=== PATIENT | female | born 1950 | race Two or more races ===

== ENCOUNTER 2017-01-09 10:34 | Emergency (ER) | payer MEDICARE, MEDICAID ==
[~2017-01-09] VITALS: Ht 152.4 cm; Wt 52.2 kg
[~2017-01-09 10:34] MED LIST: CARB25TA77 OR; CITA-73 PO; DONE10TA17 PO; LISI-275 PO; PIOG15TA38 PO; RASA1TAB PO; [UNRECOGNIZED DRUG - CODE] PO; pravastatin PO; propranolol PO
[2017-01-09] MEDS ORDERED: SODIUM CHLORIDE 0.9% 1,000 ML IV ONE ×2 (11:00→11:45)
[2017-01-09 11:27] LABS: Basophils # (auto) 0 uL; Basophils % (auto) 0.2 % (0.0-2.0); CONDITION Y; Eosinophils # (auto) 0.1 uL; Hematocrit 40.5 % (36.0-46.0); Lymphocytes # (auto) 1.5 uL; Lymphocytes % (auto) 13.2 % (10.0-50.0); Mean Corpuscular Hemoglobin 30.8 pg (28.0-32.0); Mean Corpuscular Hgb Conc. 34.6 g/dL (32.0-36.0); Mean Corpuscular Volume 88.8 fL (80.0-100.0); Mean Platelet Volume 10.6 fL (7.4-10.4); Monocytes # (auto) 0.7 uL; Neutrophils # (auto) 9.3 uL; Neutrophils % (auto) 79.6 % (37.0-80.0); Platelet Count (auto) 208 10^3/uL (140-450); SUSPECT SEE PRINTOUT; White Blood Cell 11.6 10^3/uL (4.4-10.8)
[2017-01-09] MEDS ORDERED: DIPHENOXYLATE W/ATROPINE 2.5 MG TAB PO ONE (11:45)
[2017-01-09 11:49] LABS: Albumin 3.3 g/dL (3.4-5.0); BUN/Creatinine Ratio 14.3; Bilirubin, Total 0.7 mg/dL (0.2-1.0); Calcium 8.9 mg/dL (8.5-10.1); Potassium 3.1 mmol/L (3.5-5.1); Total Protein 7.4 g/dL (6.4-8.2)
[2017-01-09] MEDS ORDERED: metroNIDAZOLE 500MG/100ML 100 ML IV ONE (12:30)
[2017-01-09] MEDS ORDERED: POTASSIUM CHL 10% (20 MEQ/15ML) ORAL SOLN PO ONE (12:30)
[2017-01-09] MEDS ORDERED: cefTRIAXone 1GM/50ML D5W 50 ML IV ONE (12:30)
[2017-01-09 13:40] LABS: Urine Bilirubin Negative (Negative); Urine Color Yellow (Yellow); Urine Glucose TRACE mg/dL (Normal); Urine Hyaline Cast FEW /lpf (0 - 2); Urine Mucus FEW (None Seen); Urine Nitrite Negative (Negative); Urine RBC 7 /hpf (0 - 4); Urine Squamous Epithelial Cell FEW /hpf (<5); Urine Urobilinogen Normal (Negative)
[2017-01-09 13:41] LABS: Urine Blood 2+ /uL (Negative); Urine Ketone 1+ (Negative)
[2017-01-09] MEDS ORDERED: HYDROcodone-ACET 5/325MG TAB PO ONE (13:45)
[2017-01-09 14:54] VITALS: BP 103/69
== END 2017-01-09 15:14 | disposition short-term general hospital (02) ==
LOC: ER 10:34
DX: K52.9 Noninfective gastroenteritis and colitis, unspecified (principal); E11.65 Type 2 diabetes mellitus with hyperglycemia; E87.6 Hypokalemia; Z90.49 Acquired absence of other specified parts of digestive tract; Z79.899 Other long term (current) drug therapy; Z88.8 Allergy status to other drugs, medicaments and biological substances
CPT/HCPCS: 36415; 74176; 80053; 81001; 85025; 96361; 96365; 96375; 99285; J0696; J3490; J7030; 96367

== ENCOUNTER 2024-01-14 23:00 | Inpatient (IN) | payer OTHER, MEDICAID ==
[~2024-01-14] VITALS: Ht 157.5 cm; Wt 53.2 kg
[~2024-01-14 23:00] MED LIST changes: -CARB25TA77 OR; -DONE10TA17 PO; +DONE10TA9 PO; +[UNRECOGNIZED DRUG - CODE] PO; -[UNRECOGNIZED DRUG - CODE] PO
[2024-01-15] VITALS (9 sets, daily range): BP systolic 108–142; BP diastolic 61–73; PULSE 69–87; RESP 16–20; TEMP 97.9–98.4; O2SAT 94–97
[2024-01-15] MEDS ORDERED: MORPHINE SULFATE INJ 2 MG/ml SYRG IV PRN (00:45)
[2024-01-15] MEDS ORDERED: ATOR40TA52 PO (00:50)
[2024-01-15] MEDS ORDERED: GLIP5TAB21 PO (00:50)
[2024-01-15] MEDS ORDERED: EMPA1TAB3 PO (00:53)
[2024-01-15] MEDS: SODIUM CHLORIDE 0.9% 1,000 ML IV SCH (04:30)
[2024-01-15] MEDS ORDERED: ACETAMINOPHEN 325 MG TAB PO PRN (04:30)
[2024-01-15] MEDS ORDERED: ONDANSETRON HCL 4 MG/2 ML VIAL IV PRN (04:30)
[2024-01-15] MEDS ORDERED: DOCUSATE SOD 100 MG CAP PO PRN (04:30)
[2024-01-15] MEDS ORDERED: DEXTROSE (50%) 50ML SYRG IV PRN (04:30)
[2024-01-15 08:27] LABS: Basophils # (auto) 0 10 ^3/uL (0-0.2); Basophils % (auto) 0.4 % (0.0-2.0); Eosinophils # (auto) 0.1 10 ^3/uL (0-0.8); Eosinophils % (auto) 1.3 % (0.0-7.0); Hematocrit 38.9 % (36.0-46.0); Hemoglobin 13.4 g/dL (12.2-16.2); Lymphocytes # (auto) 1.5 10 ^3/uL (0.4-5.4); Lymphocytes % (auto) 28.3 % (10.0-50.0); Mean Corpuscular Hemoglobin 31.2 pg (28.0-32.0); Mean Corpuscular Hgb Conc. 34.5 g/dL (32.0-36.0); Mean Corpuscular Volume 90.4 fL (80.0-100.0); Monocytes # (auto) 0.5 10 ^3/uL (0-1.3); Neutrophils # (auto) 3.2 10 ^3/uL (1.6-8.6); Red Cell Distribution Width 13.4 % (11.8-14.3); White Blood Cell 5.2 10^3/uL (4.4-10.8)
[2024-01-15 08:41] LABS: Alanine Aminotransferase 14 U/L (7-40); Alkaline Phosphatase 61 U/L (46-116); Anion Gap 5 (5-15); Aspartate Aminotransferase 13 U/L (13-40); BUN/Creatinine Ratio 21.3 (10.0-20.0); Bilirubin, Total 0.6 mg/dL (0.2-1.0); Blood Urea Nitrogen 13 mg/dL (9-23); Carbon Dioxide 25 mmol/L (20-30); Chloride 107 mmol/L (98-107); Glucose 286 mg/dL (74-106); Potassium 3.8 mmol/L (3.5-5.1); Sodium 137 mmol/L (136-145); Total Protein 6.4 g/dL (5.7-8.2)
[2024-01-15] MEDS: ACCU-CHEK COMFORT CURVE STRIP VI SCH (08:42)
[2024-01-15] MEDS: InsuLIN REG 1unit/0.01ml Soln (100units/ml) SC SCH (08:43)
[2024-01-15] MEDS: MORPHINE SULFATE INJ 2 MG/ml SYRG IV PRN (12:50)
[2024-01-15] MEDS ORDERED: PATIENTS OWN MEDICATION PO SCH (14:45)
[2024-01-15 15:20] LABS: Urine Bacteria None Seen /hpf (None Seen)
[2024-01-15 15:46] LABS: Urine Blood Negative /uL (Negative); Urine Clarity Clear (Clear); Urine Color Yellow (Yellow); Urine Mucus FEW (None Seen); Urine Protein, UAD Negative (Negative); Urine Specific Gravity 1.029 (1.001-1.035); Urine Urobilinogen Normal (Negative); Urine WBC 7 /hpf (0 - 5); Urine pH 5.5 (5.0-9.0)
[2024-01-15] MEDS: HYDROmorphone HCL 2 MG/ML VL/or syr IV ONE (18:38)
[2024-01-16 01:00] VITALS: BP 132/72; PULSE 85; RESP 18; TEMP 98.2; O2SAT 94
[2024-01-16] MEDS ORDERED: PNEUMOCOCCAL VACC POLYS 25 MCG/0.5 ML VIAL IM ONE (04:00)
[2024-01-16 05:00] VITALS: BP 116/68; PULSE 78; RESP 18; TEMP 98.6; O2SAT 95
[2024-01-16] MEDS ORDERED: IOHEXOL 300 MG/ML 100ML BOTTLE IJ ONE (06:13)
[2024-01-16] MEDS: INSULIN LANTUS (GLARGINE) 1 /0.01ml (100units/ml) SC SCH (06:21)
[2024-01-16 06:38] LABS: Alanine Aminotransferase 12 U/L (7-40); Alkaline Phosphatase 63 U/L (46-116); BUN/Creatinine Ratio 15.8 (10.0-20.0); Blood Urea Nitrogen 9 mg/dL (9-23); Calcium 9.1 mg/dL (8.7-10.4); Chloride 108 mmol/L (98-107); Glucose 112 mg/dL (74-106); Potassium 3.4 mmol/L (3.5-5.1); Sodium 141 mmol/L (136-145)
[2024-01-16 06:39] LABS: Albumin 3.9 g/dL (3.2-4.8); Aspartate Aminotransferase 12 U/L (13-40)
[2024-01-16 06:40] LABS: Basophils # (auto) 0 10 ^3/uL (0-0.2); Basophils % (auto) 0.3 % (0.0-2.0); Bilirubin, Total 0.5 mg/dL (0.2-1.0); Eosinophils # (auto) 0.1 10 ^3/uL (0-0.8); Eosinophils % (auto) 0.9 % (0.0-7.0); Hematocrit 40.9 % (36.0-46.0); Hemoglobin 13.9 g/dL (12.2-16.2); Lymphocytes # (auto) 2.1 10 ^3/uL (0.4-5.4); Lymphocytes % (auto) 30.7 % (10.0-50.0); Mean Corpuscular Hemoglobin 30.8 pg (28.0-32.0); Mean Corpuscular Hgb Conc. 34.1 g/dL (32.0-36.0); Mean Corpuscular Volume 90.5 fL (80.0-100.0); Monocytes # (auto) 0.6 10 ^3/uL (0-1.3); Monocytes % (auto) 9.1 % (0.0-12.0); Neutrophils # (auto) 4.1 10 ^3/uL (1.6-8.6); Red Blood Cells 4.51 10^6/uL (4.0-5.20); Red Cell Distribution Width 13.5 % (11.8-14.3); Total Protein 6.7 g/dL (5.7-8.2)
[2024-01-16 07:38] LABS: Anion Gap 8 (5-15); Carbon Dioxide 25 mmol/L (20-30)
[2024-01-16 09:00] VITALS: BP 125/66; PULSE 86; RESP 18; TEMP 98; O2SAT 95
[2024-01-16] MEDS ORDERED: DEXTROSE (50%) 50ML SYRG IV PRN (12:45)
[2024-01-16 13:00] VITALS: BP 136/78; PULSE 82; RESP 18; TEMP 98.1; O2SAT 96
[2024-01-16] MEDS ORDERED: SOD CHL 0.45% WITH 20MEQ KCL 1,000 ML IV SCH (13:00)
[2024-01-16 13:24] LABS: Hepatitis B Surface Antigen Negative (Negative)
[2024-01-16 13:45] LABS: Hepatitis A Ab IgM Negative
[2024-01-16 13:46] LABS: Hepatitis B Core IgM Negative; Hepatitis C Antibody Negative (Negative)
[2024-01-16] MEDS ORDERED: GASTROGRAFIN 120 ML SOL ONE (16:29)
[2024-01-16] MEDS: InsuLIN REG 1unit/0.01ml Soln (100units/ml) SC SCH (16:50)
[2024-01-16] MEDS: ACCU-CHEK COMFORT CURVE STRIP VI SCH (16:54)
[2024-01-16 17:00] VITALS: BP 143/88; PULSE 114; RESP 18; TEMP 98.2; O2SAT 95
[2024-01-16] MEDS: POTASSIUM CHLORIDE 40 MEQ, LIDOCAINE 1% (LOCAL ANESTH.) 4 ML in SODIUM CHL 0.9% 250 ML IV ONE (17:03)
[2024-01-16 21:00] VITALS: BP 127/74; PULSE 88; RESP 16; TEMP 98.2; O2SAT 94
[2024-01-17 05:00] VITALS: BP 138/75; PULSE 85; RESP 18; TEMP 98.6; O2SAT 96
[2024-01-17 07:21] LABS: Basophils # (auto) 0 10 ^3/uL (0-0.2); Basophils % (auto) 0.4 % (0.0-2.0); Eosinophils # (auto) 0 10 ^3/uL (0-0.8); Eosinophils % (auto) 0.5 % (0.0-7.0); Hematocrit 42.9 % (36.0-46.0); Hemoglobin 14.5 g/dL (12.2-16.2); Lymphocytes # (auto) 1.6 10 ^3/uL (0.4-5.4); Lymphocytes % (auto) 26.2 % (10.0-50.0); Mean Corpuscular Hemoglobin 31.1 pg (28.0-32.0); Mean Corpuscular Hgb Conc. 33.8 g/dL (32.0-36.0); Mean Corpuscular Volume 91.8 fL (80.0-100.0); Monocytes # (auto) 0.5 10 ^3/uL (0-1.3); Monocytes % (auto) 7.8 % (0.0-12.0); Neutrophils % (auto) 65.1 % (37.0-80.0); Nucleated Red Blood Cells % 0.1 %; Red Blood Cells 4.67 10^6/uL (4.0-5.20); Red Cell Distribution Width 13.7 % (11.8-14.3); White Blood Cell 6.2 10^3/uL (4.4-10.8)
[2024-01-17 07:35] LABS: Alanine Aminotransferase 25 U/L (7-40); Albumin 4.2 g/dL (3.2-4.8); Alkaline Phosphatase 79 U/L (46-116); Anion Gap 11 (5-15); Aspartate Aminotransferase 37 U/L (13-40); BUN/Creatinine Ratio 21.9 (10.0-20.0); Blood Urea Nitrogen 14 mg/dL (9-23); Calcium 9.3 mg/dL (8.7-10.4); Carbon Dioxide 23 mmol/L (20-30); Chloride 114 mmol/L (98-107); Glucose 138 mg/dL (74-106); Potassium 3.7 mmol/L (3.5-5.1)
[2024-01-17 07:36] LABS: Bilirubin, Total 0.7 mg/dL (0.2-1.0); Total Protein 7.1 g/dL (5.7-8.2)
[2024-01-17 07:44] LABS: Sodium 148 mmol/L (136-145)
[2024-01-17 09:00] VITALS: BP 140/79; PULSE 86; RESP 18; TEMP 98.4; O2SAT 96
[2024-01-17 13:00] VITALS: BP 147/78; PULSE 94; RESP 18; TEMP 98.3; O2SAT 97
[2024-01-17 14:45] VITALS: TEMP 36.8
[2024-01-17] MEDS ORDERED: DOCU-265 PO (15:48)
[2024-01-17 17:13] VITALS: BP 138/76; PULSE 64; RESP 20; TEMP 98; O2SAT 98
== END 2024-01-17 18:30 | disposition home or self-care (01) | DRG 389 ==
LOC: CENTRAL 23:58
PROVIDERS: ADMIT Internal Medicine Pulmonary Disease; ATTEND Internal Medicine Pulmonary Disease
DX: K56.609 Unspecified intestinal obstruction, unspecified as to partial versus complete obstruction (principal); E87.1 Hypo-osmolality and hyponatremia; E11.65 Type 2 diabetes mellitus with hyperglycemia; E87.6 Hypokalemia; Z83.3 Family history of diabetes mellitus; Z82.49 Family history of ischemic heart disease and other diseases of the circulatory system; Z88.2 Allergy status to sulfonamides
CPT/HCPCS: 36415; 71045; 74018; 74177; 74250; 80053; 80074; 81001; 82565; 82962; 83735; 85025; 96374; G0378; J1815; J2001

== ENCOUNTER → 2024-06-29 | Outpatient (CLI) | payer OTHER, MEDICAID ==
[~2024-06-29] VITALS: Ht 154.9 cm; Wt 52.2 kg
[~2024-06-29] MED LIST changes: +ATOR40TA52 PO; -CITA-73 PO; +DICY10CA PO; +DOCU-265 PO; -DONE10TA9 PO; +EMPA1TAB3 PO; -LISI-275 PO; +LISI2.5T47 PO; +OMEP-448 PO; -PIOG15TA38 PO; +PRIM50TA5 PO; +ROSU10TA64 PO; -[UNRECOGNIZED DRUG - CODE] PO; -pravastatin PO; -propranolol PO
[2024-06-29 11:40] LABS: Basophils # (auto) 0 10 ^3/uL (0-0.2); Basophils % (auto) 0.4 % (0.0-2.0); Eosinophils # (auto) 0 10 ^3/uL (0-0.8); Eosinophils % (auto) 0.7 % (0.0-7.0); Hematocrit 44.2 % (36.0-46.0); Hemoglobin 14.5 g/dL (12.2-16.2); Lymphocytes # (auto) 1.6 10 ^3/uL (0.4-5.4); Lymphocytes % (auto) 27.3 % (10.0-50.0); Mean Corpuscular Hemoglobin 30.3 pg (28.0-32.0); Mean Corpuscular Hgb Conc. 32.8 g/dL (32.0-36.0); Mean Corpuscular Volume 92.3 fL (80.0-100.0); Monocytes # (auto) 0.4 10 ^3/uL (0-1.3); Monocytes % (auto) 6.5 % (0.0-12.0); Neutrophils # (auto) 3.9 10 ^3/uL (1.6-8.6); Neutrophils % (auto) 65.1 % (37.0-80.0); Platelet Count (auto) 184 10^3/uL (140-450); Red Blood Cells 4.79 10^6/uL (4.0-5.20); Red Cell Distribution Width 13.6 % (11.8-14.3)
[2024-06-29 12:00] LABS: INR 0.93 (0.9-1.15); Partial Thromboplastin Time 23.1 SEC (24.5-34.5); Prothrombin Time 9.9 sec (9.3-11.8)
[2024-06-29 12:04] LABS: Alanine Aminotransferase 10 U/L (7-40); Albumin 4.8 g/dL (3.2-4.8); Alkaline Phosphatase 81 U/L (46-116); Anion Gap 8 (5-15); BUN/Creatinine Ratio 14.9 (10.0-20.0); Bilirubin, Total 0.5 mg/dL (0.2-1.0); Blood Urea Nitrogen 14 mg/dL (9-23); Carbon Dioxide 22 mmol/L (20-31); Chloride 103 mmol/L (98-107); Potassium 4.8 mmol/L (3.5-5.1); Total Protein 7.7 g/dL (5.7-8.2)
[2024-06-29 12:23] LABS: Aspartate Aminotransferase 11 U/L (13-40); Sodium 133 mmol/L (136-145)
[2024-06-29 12:30] LABS: Glucose 466 mg/dL (74-106)
== END | disposition home or self-care (01) ==
LOC: LAB 10:21 → EDSTATUS 07-04 09:45
PROVIDERS: ATTEND Internal Medicine Gastroenterology
DX: Z01.812 Encounter for preprocedural laboratory examination (principal); Z12.11 Encounter for screening for malignant neoplasm of colon
CPT/HCPCS: 36415; 80053; 85025; 85610; 85730

== ENCOUNTER 2025-02-25 10:15 | Outpatient (CLI) | payer OTHER ==
[~2025-02-25 10:15] MED LIST changes: -ATOR40TA52 PO; -DOCU-265 PO; -RASA1TAB PO
[2025-02-25 11:52] LABS: Hematocrit 42.6 % (36.0-46.0); Hemoglobin 14.3 g/dL (12.2-16.2); Mean Corpuscular Hemoglobin 30.4 pg (28.0-32.0); Mean Corpuscular Volume 90.5 fL (80.0-100.0); Nucleated Red Blood Cells % 0.0 %
[2025-02-25 12:08] LABS: Urine Protein, UAD Negative (Negative)
[2025-02-25 12:20] LABS: Alanine Aminotransferase 16 U/L (7-40); Albumin 4.8 g/dL (3.2-4.8); Alkaline Phosphatase 60 U/L (46-116); Anion Gap 10 (5-15); BUN/Creatinine Ratio 13.4 (10.0-20.0); Blood Urea Nitrogen 11 mg/dL (9-23); Calcium 9.6 mg/dL (8.7-10.4); Carbon Dioxide 25 mmol/L (20-31); Chloride 104 mmol/L (98-107); Potassium 4.1 mmol/L (3.5-5.1); Sodium 139 mmol/L (136-145); Total Protein 8.2 g/dL (5.7-8.2); Triglycerides 89 mg/dL (< 150)
[2025-02-25 12:21] LABS: Bilirubin, Total 0.6 mg/dL (0.2-1.0); Cholesterol 173 mg/dL (< 200); HDL Cholesterol 53 mg/dL (40-59)
[2025-02-25 12:23] LABS: Glucose 317 mg/dL (74-106)
[2025-02-25 13:18] LABS: Microalb/Creat Ratio, Urine 62.0
== END 2025-02-25 17:00 | disposition home or self-care (01) ==
LOC: LAB 10:15
PROVIDERS: ATTEND Student in an Organized Health Care Education/Training Program
DX: I12.9 Hypertensive chronic kidney disease with stage 1 through stage 4 chronic kidney disease, or unspecified chronic kidney disease (principal); E11.22 Type 2 diabetes mellitus with diabetic chronic kidney disease; N18.9 Chronic kidney disease, unspecified; K25.1 Acute gastric ulcer with perforation; F33.1 Major depressive disorder, recurrent, moderate; Z12.11 Encounter for screening for malignant neoplasm of colon
CPT/HCPCS: 36415; 80053; 80061; 81003; 82043; 82306; 82570; 83036; 84443; 85025